=== PATIENT | female | born 1980 | race Caucasian/White ===

== ENCOUNTER 2017-04-08 20:42 | Emergency (ER) | payer OTHER ==
[~2017-04-08] VITALS: Ht 165.1 cm; Wt 81.6 kg
[2017-04-08 20:50] VITALS: BP 149/85
[2017-04-08] MEDS ORDERED: BENZ9GEL MM (21:12)
[2017-04-08] MEDS ORDERED: NAPR-695 PO (21:12)
[2017-04-08] MEDS ORDERED: PENI500T PO (21:12)
--- NOTE | 2017-04-08 21:13 | PHYS DOC ---
Past History Past Medical History: No Pertinent History Alcohol Use: Occasionally Drug Use: None Adult General Chief Complaint Chief Complaint: DENTAL PROBLEM HPI HPI Patient is a 37-year-old female with chronic dental caries presents with complaints of pain at tooth right side of the jaw at #29. Patient has no other complaints Review of Systems Review of Systems Constitutional: Denies fever or chills [] HENT: Denies pain or injury. No problems swallowing Respiratory: Denies cough or shortness of breath [] Cardiovascular: No pain or injury GI: Denies abdominal pain, nausea, vomiting, Musculoskeletal: Denies back pain or joint pain [] Integument: Denies rash or skin lesions [] Neurologic: Denies headache, focal weakness or sensory changes [] All other systems were reviewed and found to be within normal limits, except as documented in this note. Allergies Allergies Allergies Coded Allergies Type Severity Reaction Last Updated Verified No Known Drug Allergies 04/08/17 No Physical Exam Physical Exam Constitutional: Well developed, well nourished, no acute distress, non-toxic appearance. [] HENT: Normocephalic, atraumatic, bilateral external ears normal, oropharynx moist, no oral exudates, nose normal. Diffuse dental caries, no clear abscess to drain, airways patent. Tenderness to percussion at #29 tooth Eyes:, EOMI, conjunctiva normal, no discharge. [] Neck: Normal range of motion, taken midline no stridor. No masses Cardiovascular: Normal perfusion Lungs & Thorax: No tachypnea Abdomen: No distention Skin: Warm, dry, no erythema, no rash. [] Back: Normal range of motion Extremities: No tenderness, no deformity Neurologic: Alert and oriented X 3, normal motor function, and relates in the ED with normal gait and without assistance, no focal deficits noted. [] Psychologic: Affect normal, judgement normal, mood normal. [] EKG EKG [] Radiology/Procedures Radiology/Procedures [] Course & Med Decision Making Course & Med Decision Making Pertinent Labs and Imaging studies reviewed. (See chart for details) [] Dragon Disclaimer Dragon Disclaimer This electronic medical record was generated, in whole or in part, using a voice recognition dictation system. Departure Departure: Impression: Primary Impression: Tooth ache Disposition: 01 HOME, SELF-CARE Condition: STABLE Referrals: PCP,NO (PCP) Patient Instructions: Dental Caries Additional Instructions: please follow up with a dentist (or local dental school) for definitive care as soon as possible. Follow up in one day Scripts Benzocaine (ANBESOL) 9 Gm Gel..gram. 9 GM MM TID for 5 Days, #15 EACH Prov: Michael VELIZ MD 04/08/17 Naproxen (NAPROXEN) 375 Mg Tablet 1 TAB PO TID for 5 Days, #15 TAB 5 Refills Prov: Michael VELIZ MD 04/08/17 Penicillin V Potassium (PENICILLIN V POTASSIUM) 500 Mg Tablet 1 TAB PO TID, #30 TAB Prov: Michael VELIZ MD 04/08/17 Michael VELIZ MD Apr 08, 2017 21:13
== END 2017-04-08 21:15 | disposition home or self-care (01) ==
LOC: ER 20:42
DX: K08.89 Other specified disorders of teeth and supporting structures (principal); K02.9 Dental caries, unspecified
CPT/HCPCS: 99283